=== PATIENT | female | born 1970 | race Caucasian/White ===

== ENCOUNTER 2023-06-16 07:36 | Outpatient (CLI) | payer BC, SELFPAY ==
--- NOTE | 2023-06-16 07:42 | MM_ITS ---
WS: [id number] VIEWS: MLO and CC views both breasts. 3D digital tomosynthesis is also included in this exam. Breast implant displacement MLO and CC views of both breasts also included. No comparisons. Findings: There was no sign of mass, architectural distortion or suspicious calcification in either breast. Int act bilateral breast implants noted.There are scattered areas of fibroglandular density. MM/[id number] Impression: BI-RADS: 2-Benign finding. FOLLOW-UP: 1 Year Follow-up This mammogram was also analyzed by the Computer Aided Detection System R2 Imag e Planer Operator / Grader.
== END 2023-06-16 07:37 | disposition home or self-care (01) ==
PROVIDERS: PCP Family Medicine; Visit Provider Family Medicine
DX: Z12.31 Encounter for screening mammogram for malignant neoplasm of breast (principal)
CPT/HCPCS: 77063; 77067